=== PATIENT | male | born 1980 | race Caucasian/White ===

== ENCOUNTER 2016-12-25 17:30 | Emergency (ER) | payer OTHER ==
[~2016-12-25] VITALS: Ht 177.8 cm; Wt 109.1 kg
[~2016-12-25 17:30] MED LIST: ALPR0.254 PO; BUSP10TA2 PO; CITA10TA9 PO; KLO5T PO; LISI10TA PO
[2016-12-25 17:33] VITALS: BP 136/90; PULSE 86; RESP 22; O2SAT 97
[2016-12-25 17:43] VITALS: BP 141/76; PULSE 85; RESP 15; O2SAT 96
[2016-12-25] MEDS ORDERED: CITA40TA13 PO (17:43)
--- NOTE | 2016-12-25 18:25 | DRSVH ---
PROCEDURE: X-RAY CHEST ONE VIEW, PORTABLE ([id number]) INDICATIONS: 36 year-old male with shortness of breath and chest pain for 2.5 weeks. TECHNIQUE: One view of the chest was acquired. COMPARISON: [facility], CR, XR CHEST 1VW (PORTABLE), 06/21/2015, 15:17. [facility], CR, CHEST 1VW (PORTABLE), 04/24/2009, 14:04. FINDINGS: Surgical changes and devices: None. Lungs and pleura: No pleural effusions or pneumothorax. Lungs are clear. Mediastinum: Mediastinal contours appear normal. Heart size is normal. Bones and chest wall: No suspicious bony lesions. Overlying soft tissues appear unremarkable. IMPRESSION: No acute cardiopulmonary disease. Dictated by: Kendall Hough M.D. on 12/25/2016 at 18:23 Approved by: Kendall Hough M.D. on 12/25/2016 at 18:24
[2016-12-25 18:27] LABS: BASOPHILS % (AUTO) 0.3 % (0-3); EOSINOPHILS % (AUTO) 2.1 % (0-5); Mean Corpuscular Hemoglobin 28.4 pg (27.0-35.0); Mean Corpuscular Volume 82.9 fL (81-100); NEUTROPHILS % (AUTO) 64.1 % (40-74); Platelet Count 232 bil/L (150-400)
[2016-12-25 18:55] LABS: TROPONIN T < 0.010 ug/L (0.0-0.011)
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
[2016-12-25 19:01] LABS: Magnesium 1.8 mg/dL (1.6-2.6)
[2016-12-25] MEDS ORDERED: Albuterol-Ipratropium 3 mL Inhalation Solution NEB ONE (19:10)
[2016-12-25 19:32] VITALS: PULSE 69; RESP 18; O2SAT 98
[2016-12-25 20:07] VITALS: BP 106/47; PULSE 88; RESP 20; O2SAT 95
[2016-12-25] MEDS ORDERED: ALBU2.5V4 INHALATION (21:00)
[2016-12-25] MEDS ORDERED: ALBU8.5H2 INHALATION (21:00)
[2016-12-25 21:13] VITALS: BP 112/51; PULSE 80; RESP 20; O2SAT 94
== END 2016-12-25 21:14 | disposition home or self-care (01) ==
LOC: SED 17:30
DX: R07.89 Other chest pain (principal); R06.02 Shortness of breath; R53.83 Other fatigue; R05 Cough; I11.0 Hypertensive heart disease with heart failure; F41.9 Anxiety disorder, unspecified; Z88.8 Allergy status to other drugs, medicaments and biological substances
CPT/HCPCS: 36415; 71010; 80053; 83735; 84484; 85025; 85378; 93005; 94664; 99285; J7620